=== PATIENT | female | born 1985 | race Asian ===

== ENCOUNTER 2022-05-21 10:47 | Outpatient (REF) | payer OTHER, SELFPAY ==
[2022-05-21 13:43] LABS: MANUAL DIFF FLAG NO
[2022-05-21 13:48] LABS: Basophils Absolute Auto 0.1 X10*3/uL (0.0-0.2); Basophils Percent Auto 0.7 % (0-2); Eosinophils Absolute Auto 0.1 X10*3/uL (0.0-0.4); Hematocrit 44.8 % (37.0-47.0); Hemoglobin 14.5 g/dl (12.0-16.0); Imm Gran Abs Auto 0.04 X10*3/uL (0.00-0.03); Imm Gran Pct Auto 0.4 % (0.0-0.4); Lymphocytes Absolute Auto 1.7 X10*3/uL (1.2-4.9); Lymphocytes Percent Auto 17.8 % (20-40); Mean Corpuscular HGB Conc 32.4 g/dl (31.0-35.0); Mean Corpuscular Hemoglobin 29.8 pg (27.0-33.0); Mean Corpuscular Volume 92.2 fL (80.0-98.0); Mean Platelet Volume 9.3 fL (9.4-12.3); Monocytes Absolute Auto 0.5 X10*3/uL (0.1-1.2); Monocytes Percent Auto 5.4 % (2-11); Neutrophils Absolute Auto 7.1 x10*3/uL (2.0-8.3); Neutrophils Percent Auto 74.7 % (45-73); Platelet Count 510 X10*3/uL (160-400); Red Blood Count 4.86 X10*6/uL (4.20-5.50); Red Cell Distribution Width 13.7 % (11.0-16.0); White Blood Count 9.5 X10*3/uL (4.8-10.8)
[2022-05-21 14:40] LABS: Alanine Aminotransferase 34 U/L (0-31); Albumin Level 4.1 g/dL (3.5-5.0); Alkaline Phosphatase 67 U/L (39-117); Anion Gap 18 (12-20); Aspartate Amino Transferase 21 U/L (5-31); Bilirubin Total 0.3 mg/dL (0.0-1.0); Blood Urea Nitrogen 15 mg/dL (9-16); Calcium 9.2 mg/dL (8.4-10.2); Carbon Dioxide 22 mmol/L (22-29); Chloride 102 mmol/L (96-108); Estimated Glomerular Filt Rate > 60; Glucose Random 71 mg/dL (60-115); Potassium 5.2 mmol/L (3.3-5.1); Sodium 137 mmol/L (135-145); Total Protein 7.2 g/dL (6.5-8.0)
[2022-05-21 14:52] LABS: TSH reflex Free T4 1.05 uIU/mL (0.32-4.0)
== END 2022-05-21 10:48 | disposition home or self-care (01) ==
LOC: HO.10HDL 10:47
PROVIDERS: Visit Provider Internal Medicine
DX: F43.12 Post-traumatic stress disorder, chronic (principal); G80.8 Other cerebral palsy; H54.8 Legal blindness, as defined in USA; R63.4 Abnormal weight loss
CPT/HCPCS: 36415; 80053; 84443; 85025

== ENCOUNTER 2024-12-10 16:19 | Outpatient (REF) | payer OTHER, SELFPAY ==
[2024-12-13 07:29] LABS: TS Negative Control Passed; TS Panel A 0; TS Panel B 3; TS Positive Control Passed; TSpotTB Negative (Negative)
== END 2024-12-10 16:20 | disposition home or self-care (01) ==
LOC: HO.LAB 16:19
PROVIDERS: PCP Internal Medicine; Visit Provider Internal Medicine
DX: G80.8 Other cerebral palsy (principal); H54.8 Legal blindness, as defined in USA; Z11.1 Encounter for screening for respiratory tuberculosis
CPT/HCPCS: 36415; 86481